=== PATIENT | female | born 1960 | race Caucasian/White ===

== ENCOUNTER → 2017-04-10 | Outpatient (CLI) | payer OTHER | LOC: GMA 17:20 | PROVIDERS: ATTEND Nurse Practitioner Acute Care | DX: J45.21 Mild intermittent asthma with (acute) exacerbation (principal) ==

== ENCOUNTER → 2017-08-09 | Outpatient (CLI) | payer OTHER | END | disposition home or self-care (01) | LOC: LAB.O 09:33 | PROVIDERS: ATTEND Family Medicine | DX: R19.7 Diarrhea, unspecified (principal) ==

== ENCOUNTER → 2017-09-17 | Outpatient (CLI) | payer OTHER | END | disposition home or self-care (01) | LOC: GMA 16:51 | PROVIDERS: ATTEND Nurse Practitioner Acute Care | DX: N30.00 Acute cystitis without hematuria (principal) ==

== ENCOUNTER 2019-02-18 15:24 | Inpatient (IN) | payer OTHER ==
--- NOTE | 2019-02-18 15:39 | HP ---
SUPERVISING PHYSICIAN: Onel Monge MD CHIEF COMPLAINT: Right upper quadrant pain. HISTORY OF PRESENT ILLNESS: Ms. Moran is a 58-year-old, female patient of Dr. Judd. She reports that in the last week she has had some right upper quadrant pain that significantly worsened today. On presentation to the clinic, given her symptomatology and exam, Dr. Judd requested the patient be admitted to the hospital for questionable acute cholecystitis and surgical consultation. The patient denied any bowel habit changes other than she has issues with bloating, which has apparently been an issue for well over 5 months. She cannot attribute her symptoms to any specific onset. She notes she did have a colonoscopy within the last 2 years and according to her, she had 2 polyps. Those reports are unavailable at time of admission. She was admitted in stable condition for surgical consultation and further workup for possible acute cholecystitis. PAST MEDICAL HISTORY: 1. Asthma. 2. Diverticulosis. 3. Gastroesophageal reflux disease. 4. Seasonal allergies. PAST SURGICAL HISTORY: 1. Bilateral breast implants. 2. Partial hysterectomy. 3. Bladder suspension. 4. Tonsillectomy. CURRENT MEDICATIONS: 1. Ultracet 1 q.4h. as needed for pain. 2. Restoril 50 mg at bedtime as needed. ALLERGIES: DOXYCYCLINE, ERYTHROMYCIN, IODINE. FAMILY HISTORY: Mother has a history of hypertension, chronic obstructive pulmonary disease, breast cancer, lung cancer and diabetes. Father from lung cancer at age 78. She had a younger brother that was killed at age 16 in a car accident. She has one sister who had breast cancer. She has two other sisters that are healthy without any medical problems. She has two children, both boys, that are healthy. SOCIAL HISTORY: She currently lives in [place]. She is . She has two children. She is a fine arts chair. She does not drink alcohol and does not smoke or use illicit drugs. REVIEW OF SYSTEMS: CONSTITUTIONAL: The patient denies any general malaise, fevers or unintentional weight loss. HEENT: Negative for sore throats, earaches, nasal congestion, vision changes. RESPIRATORY: Negative for coughing, wheezing or shortness of breath. CARDIOVASCULAR: Negative for chest pain, tachycardia or syncopal episodes, extremity edema. GASTROINTESTINAL: As noted in history of present illness, positive for right upper quadrant pain, nausea. She denies any actual emesis. No constipation. She has occasional diarrhea. GENITOURINARY: Negative for dysuria, hematuria, polyuria. NEUROLOGIC: Negative for syncopal episodes, seizure, ataxia, headaches, vision changes or other neurologic deficits. PHYSICAL EXAMINATION: VITAL SIGNS: Temperature 97.5. Pulse 50. Blood pressure 120/77. Respirations 16. Oxygen saturation 98% on room air. Admission weight 82.9 kg. GENERAL: The patient is resting comfortably, but does appear to be in some pain on exam and with any movement. She is alert. HEENT: Tympanic membranes clear bilaterally. Oropharynx is pink, moist without any lesions. NECK: Supple, nontender with full range of motion. No jugular venous distention noted. RESPIRATORY: Lungs clear to auscultation bilaterally without any rhonchi, wheezes or rales. CARDIOVASCULAR: Regular rate and rhythm without any appreciable murmurs, gallops, or rubs. ABDOMEN: Soft with tenderness noted on palpation of the right upper quadrant. No guarding. No rebound tenderness. Bowel sounds active. BACK: Positive for right sided CVA tenderness. No vertebral tenderness. EXTREMITIES: There is no cyanosis, clubbing or edema. NEUROLOGIC: The patient is alert and oriented times three. LABORATORY: CBC is within normal limits with white count 9,200, no shift on differential. Chemistry shows normal electrolytes with BUN 13, creatinine 0.79. Liver functions all within normal limits. Amylase and lipase normal. Troponin less than 0.02. CPK 103. Urinalysis showed trace intact blood, otherwise within normal limits. MICROBIOLOGY: No specimens submitted. RADIOLOGY: Abdominopelvic CT without contrast on admission per radiologic interpretation showed probable left adrenal adenoma observed, unchanged from previous with a 2.4 mm diameter nonobstructing calculus observed in the lower pole of the left kidney, uncomplicated diverticulosis of the colon and hysterectomy. This was followed up with a right upper quadrant abdominal scan of the gallbladder and per radiologic interpretation of ultrasound, there was small gallbladder polyps, otherwise negative examination. ASSESSMENT: 1. Right upper quadrant pain with polyps noted on ultrasound without any acute findings of cholecystitis pending surgical consultation with Dr. Mejia. 2. History of asthma with no signs of exacerbation. 3. Gastroesophageal reflux disease. 4. History of diverticulosis without any signs of diverticulitis of the colon. PLAN: The patient is going to be admitted for right upper quadrant for further examination, evaluation and surgical consultation. She will be made NPO. I have started her on some fluids of LR. We will have her on DVT prophylaxis once she sees Dr. Mejia in consultation. I will provide pain management with Toradol as needed, Dilaudid for any severe pain to keep pain under control and continue with IV morphine as needed. She will have Zofran and Phenergan as needed for nausea or vomiting. We will review her home medications and resume those as appropriate. We will anticipate her length of stay to be at least 2 to 3 days. We will await surgical consultation with Dr. Mejia in the morning. Until she can transition to outpatient management, we will continue to monitor and treat as needed. #[id number] [facility]
[2019-02-18] MEDS ORDERED: SODIUM CHLORIDE 0.9% (FLUSH) 10 ML SYG IV PRN (16:13)
[2019-02-18] MEDS ORDERED: LACTATED RINGERS 1,000 ML IVS PRN (16:17)
[2019-02-18] MEDS ORDERED: IV SET AND CAP CHANGE INJ INJ SCH (16:30)
--- NOTE | 2019-02-18 16:48 | CT ---
EXAM DESCRIPTION: Abdoment/Pelvis w/o Contrast CLINICAL HISTORY: 58 years Female, Acute RUQ pain COMPARISON: 01 October 2014 TECHNIQUE: Transaxial images were obtained without intravenous or oral contrast media. Sagittal and coronal reconstruction was performed.This exam was performed according to our departmental dose-optimization program, which includes automated exposure control, adjustment of the mA and/or kV according to patient size and/or use of iterative reconstruction technique. FINDINGS: Bilateral breast implants are observed. The lung bases are clear. The liver and spleen are normal in appearance. No biliary ductal dilatation is observed. A left adrenal mass is observed unchanged from the previous exam. The pancreas is normal in appearance. Imaging of the kidneys reveals no evidence of hydronephrosis solid mass or cyst. A lower pole calculus measuring 2.4 mm in diameter is identified in the lower pole the patient's left kidney. The appendix is identified and is normal in appearance. Diverticulosis of the colon is observed without evidence of diverticulitis. No inguinal region abnormality is seen. No free pelvic fluid is seen. The patient is post hysterectomy. Calcific atherosclerotic changes observed in the abdominal aorta without evidence of aneurysmal dilatation. No bone abnormality is seen. IMPRESSION: 1. A probable left adrenal adenoma is observed unchanged. 2. A 2.4 mm diameter nonobstructing calculus is observed in the lower pole of left kidney. 3. Uncomplicated diverticulosis of the colon. 4. Hysterectomy Electronically signed by: Robel Bhatia MD 02/18/2019 4:45 PM CDT
[2019-02-18] MEDS ORDERED: KETOROLAC TROMETHAMINE INJ 30 MG/ML VIAL IV ONE (17:04)
[2019-02-18] MEDS ORDERED: HYDROmorphone HCL INJ 2 MG/ML VIAL IV ONE (17:04)
--- NOTE | 2019-02-18 18:42 | US ---
EXAM: Ultrasound gallbladder CLINICAL INDICATION: Right upper quadrant pain COMPARISON: 10/01/2014 FINDINGS: Multiple sonographic images of the gallbladder reveal no gallstone, gallbladder wall thickening or pericholecystic fluid. There are 2 small nonshadowing polyps including one measuring 7.1 mm and another measuring 5.0 mm. The CBD measures 3.3 mm. IMPRESSION: Small gallbladder polyps. Otherwise negative examination. Electronically signed by: Antony Gil MD 02/18/2019 6:39 PM CDT
[2019-02-18] MEDS ORDERED: levoFLOXacin 750MG IV 750 MG in PREMIX BAG 1 BAG IVPB SCH (19:30)
[2019-02-18] MEDS: MORPHINE SULFATE INJ 10 MG/ML VIAL IV PRN (22:24)
[2019-02-18] MEDS: KCL 20MEQ/D5 1/2NS 1,000 ML IVS PRN (23:53)
[2019-02-19] MEDS ORDERED: ONDANSETRON INJ 4 MG/2 ML VIAL IV ONE (08:02)
[2019-02-19] MEDS: MORPHINE SULFATE INJ 10 MG/ML VIAL IV PRN (08:28)
[2019-02-19] MEDS ORDERED: MAGNESIUM HYDROXIDE 30 ML UD PO ONE (11:19)
[2019-02-19] MEDS: KCL 20MEQ/D5 1/2NS 1,000 ML IVS PRN (11:48)
--- NOTE | 2019-02-19 12:11 | CONS ---
DATE OF CONSULTATION: 02/19/19 HISTORY OF PRESENT ILLNESS: The patient is a 58-year-old female who has had several weeks of what she considers right upper quadrant abdominal pain. She associates it with eating fatty foods, but the symptoms do not occur quickly after meals. She has also had chills at night, but has not measured a temperature elevation. There has been nausea without vomiting. There has been no change in her bowel habits. She denies melanotic stools and blood per rectum. She has no history of hepatitis or jaundice. PAST MEDICAL HISTORY: 1. Asthma. 2. Diverticulosis. 3. Gastroesophageal reflux disease. 4. Hyperlipidemia. MEDICATIONS: 1. Singulair. 2. Albuterol. 3. Mucinex. 4. Xyzal. ALLERGIES: MACROBID, ERYTHROMYCIN, DOXYCYCLINE, POSSIBLY SHELLFISH. FAMILY HISTORY: Positive for biliary problems with at least her son having cholecystectomy. There is no history of biliary malignancy. SOCIAL HISTORY: She smoked as a youngster, but not for a long period of time. She drinks on a routine basis. REVIEW OF SYSTEMS: There has been no weight loss, no changes in her activity level. She denies chest pain, shortness of breath or productive cough. She denies urinary tract symptoms. PHYSICAL EXAMINATION: GENERAL: The patient is awake, alert, cooperative, in mild distress. VITAL SIGNS: The patient is currently afebrile, normotensive. HEENT: Sclerae nonicteric. Mucous membranes moist. NECK: Without adenopathy. BACK: There is mild right CVA tenderness. CHEST: Equal breath sounds bilaterally. ABDOMEN: Soft. There is mild diffuse tenderness, but exquisite tenderness in the right upper quadrant without mass or guarding. PELVIC/RECTAL: Deferred. EXTREMITIES: Without cyanosis, clubbing or edema. LABORATORY: Normal white blood cell count with normal differential and normal liver function tests this morning. She had a normal amylase and lipase yesterday. Ultrasound revealed a normal gallbladder wall without edema, normal ducts and possibly polyps versus stones in the gallbladder. CT scan was unremarkable other than showing a large amount of stool especially in the right colon. ASSESSMENT: 1. Right upper quadrant abdominal pain. Biliary colic versus constipation/obstipation. PLAN: We will re-start clear liquids. We will give the patient doses of MiraLAX and Milk of Magnesia and follow the patient symptomatically. If she improves significantly, she can go home and followup with me and we will consider a HIDA scan as an outpatient. If her symptoms do not resolve, we will give her further dosing and keep her overnight, making her NPO again at midnight. #[id number] [facility]
[2019-02-19 13:48] VITALS: BP 123/74; TEMP 99.4; O2SAT 95
[2019-02-19] MEDS ORDERED: POLYETHYLENE GLYCOL 3350 17 GM PCKT PO SCH (18:00)
--- NOTE | 2019-02-25 13:12 | DS ---
SUPERVISING PHYSICIAN: Onel Monge MD ADMISSION DIAGNOSIS: 1. Right upper quadrant pain with polyps noted on ultrasound without any acute findings of cholecystitis pending surgical consultation with Dr. Mejia. 2. History of asthma with no signs of exacerbation. 3. Gastroesophageal reflux disease. 4. History of diverticulosis without any signs of diverticulitis of the colon. DISCHARGE DIAGNOSIS: 1. Right upper quadrant pain, probably due to continues/obstipation, showing improvement with stool softeners and other laxatives. 2. History of asthma with no signs of exacerbation. 3. Gastroesophageal reflux disease without any signs of exacerbation. 4. History of diverticulosis without any signs of diverticulitis of the colon. REASON FOR HOSPITALIZATION: Ms. Moran is a 58-year-old, female patient of Dr. Judd. She reports that in the last week she has had some right upper quadrant pain that significantly worsened today. On presentation to the clinic, given her symptomatology and exam, Dr. Judd requested the patient be admitted to the hospital for questionable acute cholecystitis and surgical consultation. The patient denied any bowel habit changes other than she has issues with bloating, which has apparently been an issue for well over 5 months. She cannot attribute her symptoms to any specific onset. She notes she did have a colonoscopy within the last 2 years and according to her, she had 2 polyps. Those reports are unavailable at time of admission. She was admitted in stable condition for surgical consultation and further workup for possible acute cholecystitis. LABORATORY: CBC on admission and at discharge was within normal limits. All chemistries were within normal limits both on admission and at discharge. Amylase and lipase were both normal. Urinalysis showed trace of intact blood, otherwise normal. RADIOLOGY: She had an abdominopelvic CT prior to admission and per radiologic interpretation showed probable left adrenal adenoma observed, unchanged from previous, and a 2.4 mm nonobstructing calculus of the left pole of the kidney. There was uncomplicated diverticulosis of the colon and hysterectomy noted. She also had a gallbladder ultrasound after admission and per radiologic interpretation showed small gallbladder polyps, otherwise negative exam. CONSULTATION: Consultation was done by Dr. Mejia. HOSPITAL COURSE: Ms. Moran was admitted directly from Dr. Judd's office for concerns for right upper quadrant pain secondary to acute cholecystitis. She was seen in consultation by Dr. Mejia. She showed good clinical response to treatment. It was felt that her pain was more likely related to constipation/obstipation and after Milk of Magnesia and MiraLAX, the patient was showing good improvement. She was tolerating a diet and no longer having pain. She was felt clinically stable enough and improved to discharge home. PLAN: Ms. Moran was discharged with instructions to continue with Milk of Magnesia at least for 2 to 3 days until she was having loose stools and then use p.r.n. She was to take MiraLAX daily as directed. She was again instructed to return to the hospital should she have any concerning or worsening symptoms or to call Dr. Judd or Dr. Mejia. She has a followup appointment suggested at [address] Mejia or sooner if needed. Diet at discharge was low-fat, low- cholesterol diet. Activities to increase as tolerated. MEDICATIONS AT DISCHARGE: 1. Milk of Magnesia p.r.n. as directed. 2. MiraLAX as directed. All other medications prior to hospitalization were continued as prior. CONDITION AT DISCHARGE: Stable and improving. DISPOSITION: The patient is discharged to care of family members. #[id number] [facility]
== END 2019-02-19 16:30 | disposition home or self-care (01) | DRG 392 ==
LOC: MS 15:24 → UNDOADMIN 15:24 → MS 15:51
PROVIDERS: ADMIT Nurse Practitioner Family; ATTEND Nurse Practitioner Family
DX: K59.00 Constipation, unspecified (principal); K21.9 Gastro-esophageal reflux disease without esophagitis; J45.909 Unspecified asthma, uncomplicated; E78.5 Hyperlipidemia, unspecified; Z88.1 Allergy status to other antibiotic agents; Z91.013 Allergy to seafood; Z87.891 Personal history of nicotine dependence

== ENCOUNTER 2020-09-27 14:50 | Emergency (ER) | payer OTHER ==
--- NOTE | 2020-09-27 16:34 | RAD ---
EXAM DESCRIPTION: Chest,1 View CLINICAL HISTORY: COVID COMPARISON: None. IMPRESSION: Single AP portable upright view of the chest shows cardiac silhouette and pulmonary vasculature to be within normal limits. Lungs are normally aerated. Patchy areas of airspace mostly interstitial infiltrate are seen in the lungs bilaterally most significant in the left lower lobe compatible with bilateral pneumonia and/or atelectasis. Imaging features can be seen with COVID-19 pneumonia, though are nonspecific and can occur with a variety of infectious and noninfectious processes. [PneInd] No obvious pleural effusion or pneumothorax is seen. Electronically signed by: John Coffey MD 09/27/2020 4:32 PM [employer]
--- NOTE | 2020-09-27 16:55 | ED.PDOC ---
History of Present Illness - General Chief Complaint: General Stated Complaint: COVID + Time Seen by Provider: 09/27/20 15:51 Source: patient Exam Limitations: no limitations - History of Present Illness Initial Comments: PATIENT IS 6-7 DAYS SINCE ONSET OF COVID SYMPTOMS, + CONFIRMATORY TEST SINCE THEN, WAS WORRIED THAT SHE FELT SOME SOB TODAY, SHE CONTINUES TO HAVE SOME LOW GRADE FEVER, SEVERE MYALGIAS, GENERALIZED WEAKNESS AND CHEST PAINS. Timing/Duration: week Severity: severe Possible Cause: no prior episodes Improving Factors: nothing Worsening Factors: nothing Associated Symptoms: denies symptoms Allergies/Adverse Reactions: Allergies Doxycycline Allergy (Mild, Verified 09/27/20 15:41) Hives Erythromycin Allergy (Mild, Verified 09/27/20 15:41) Vomitting Iodine Allergy (Verified 09/27/20 15:41) Shellfish Allergy Allergy (Verified 09/27/20 15:41) Home Medications: Ambulatory Orders Temazepam [Restoril] 15 mg PO BEDTIME PRN #15 cap 10/03/14 traMADol 37.5MG/APAP 325MG [Ultracet] 1 ea PO Q4H PRN #30 tab 10/03/14 Magnesium Hydroxide [Milk Of Magnesia] 30 ml PO DAILY PRN 3 Days ud 02/19/19 Polyethylene Glycol 3350 [Miralax] 17 gm PO DAILY #30 pckt 02/19/19 Azithromycin [Zithromax Z-Ortiz] 250 mg PO DAILY #6 tab 09/27/20 Benzonatate Perles [Tessalon Perles] 200 mg PO TID PRN #15 cap 09/27/20 Ondansetron Odt [Zofran ODT] 8 mg PO TID PRN #15 tab 09/27/20 Tramadol HCl [Ultram] 50 mg PO Q4H PRN #20 tab 09/27/20 Review of Systems - Review of Systems Constitutional: States: no symptoms reported EENTM: States: no symptoms reported Respiratory: States: see HPI Cardiology: States: see HPI, chest pain Gastrointestinal/Abdominal: States: no symptoms reported Genitourinary: States: no symptoms reported Musculoskeletal: States: no symptoms reported Skin: States: no symptoms reported Neurological: States: no symptoms reported Past Medical History (General) - Patient Medical History Hx Seizures: No Hx Stroke: No Hx Asthma: Yes - 1984 Hx of COPD: No Hx Cardiac Disorders: No Hx Congestive Heart Failure: No Hx Pacemaker: No Hx Hypertension: No Hx Diabetes: No Hx MRSA: No Surgical History: cholecystectomy - Vaccination History Hx Influenza Vaccination: Yes - 2013 Hx Pneumococcal Vaccination: No - Social History Hx Tobacco Use: No Hx Alcohol Use: No Hx Substance Use: No Hx Physical Abuse: No Hx Emotional Abuse: No - Female History Patient is a Female of Child Bearing Age (10 -59 yrs old): No Patient : No Family Medical History - Family History Father Living Status: Cause of : lung CA Hx Family Cancer: Yes - lung Physical Exam - Physical Exam General Appearance: Alert, Anxious, Ill Appearing ENT Exam: normal ENT inspection Neck: non-tender, full range of motion, supple Respiratory: chest non-tender, no respiratory distress, no accessory muscle use Cardiovascular/Chest: normal peripheral pulses, regular rate, rhythm, no edema, no gallop, no JVD Gastrointestinal/Abdominal: normal bowel sounds, non tender, soft, no organomegaly Extremity: normal range of motion, non-tender, normal inspection, no pedal edema, no calf tenderness Neurologic: no motor/sensory deficits, alert, normal mood/affect, oriented x 3 Skin Exam: normal color, warm/dry, pallor Lymphatic: no adenopathy Progress - Progress Progress: 09/27/20 16:57 OTHER THAT BEING OVER 55, NO OTHER HIGH RISK FACTORS FOR SEVERE DISEASE, DOES NOT MEET EUA FOR BAM. Departure - Departure Clinical Impression: COVID-19 Time of Disposition: 16:58 Disposition: Discharge to Home or Self Care Condition: Good Departure Forms: ED Discharge - Pt. Copy, Patient Portal Self Enrollment Referrals: Booker Brown MD [Primary Care Provider] - 1-2 Weeks Prescriptions: Benzonatate Perles [Tessalon Perles] 200 mg PO TID PRN #15 cap PRN Reason: Cough Tramadol HCl [Ultram] 50 mg PO Q4H PRN #20 tab PRN Reason: Pain Azithromycin [Zithromax Z-Ortiz] 250 mg PO DAILY #6 tab Ondansetron Odt [Zofran ODT] 8 mg PO TID PRN #15 tab PRN Reason: Nausea Home Medications: Ambulatory Orders Temazepam [Restoril] 15 mg PO BEDTIME PRN #15 cap 10/03/14 traMADol 37.5MG/APAP 325MG [Ultracet] 1 ea PO Q4H PRN #30 tab 10/03/14 Magnesium Hydroxide [Milk Of Magnesia] 30 ml PO DAILY PRN 3 Days ud 02/19/19 Polyethylene Glycol 3350 [Miralax] 17 gm PO DAILY #30 pckt 02/19/19 Azithromycin [Zithromax Z-Ortiz] 250 mg PO DAILY #6 tab 09/27/20 Benzonatate Perles [Tessalon Perles] 200 mg PO TID PRN #15 cap 09/27/20 Ondansetron Odt [Zofran ODT] 8 mg PO TID PRN #15 tab 09/27/20 Tramadol HCl [Ultram] 50 mg PO Q4H PRN #20 tab 09/27/20
[2020-09-27 17:36] VITALS: BP 107/63; TEMP 97.8; O2SAT 94
== END 2020-09-27 17:27 | disposition home or self-care (01) ==
LOC: ER 14:50
DX: U07.1 COVID-19 (principal); J45.909 Unspecified asthma, uncomplicated; Z88.1 Allergy status to other antibiotic agents; Z91.041 Radiographic dye allergy status